=== PATIENT | male | born 1970 | race Caucasian/White ===

== ENCOUNTER 2017-04-30 14:24 | Outpatient (CLI) | END 2017-04-30 14:25 | disposition home or self-care (01) | LOC: RHC-LAB 14:24 | PROVIDERS: ATTEND Nurse Practitioner Family | DX: R05 Cough (principal); R50.9 Fever, unspecified | CPT/HCPCS: 87651; 87804 ==

== ENCOUNTER 2017-06-11 15:02 | Outpatient (POV) | END 2017-06-11 17:00 | LOC: OUTPT 15:02 | PROVIDERS: ATTEND Otolaryngology | DX: H93.13 Tinnitus, bilateral (principal) ==